=== PATIENT | male | born 1940 | race Caucasian/White ===

== ENCOUNTER → 2016-10-07 | Outpatient (CLI) | payer MEDICARE | END | disposition home or self-care (01) | LOC: PCVCIMAG 08:31 | PROVIDERS: ATTEND Internal Medicine | DX: I10 Essential (primary) hypertension (principal); E78.5 Hyperlipidemia, unspecified; I49.3 Ventricular premature depolarization; I65.29 Occlusion and stenosis of unspecified carotid artery; G45.9 Transient cerebral ischemic attack, unspecified; G47.30 Sleep apnea, unspecified; R73.02 Impaired glucose tolerance (oral) | CPT/HCPCS: 80061; 93005; 93880; G0463 ==

== ENCOUNTER → 2017-10-13 | Outpatient (CLI) | payer BC, MEDICARE | END | disposition home or self-care (01) | LOC: PCVCCLINIC 10:47 | DX: I10 Essential (primary) hypertension (principal); I49.3 Ventricular premature depolarization; E78.5 Hyperlipidemia, unspecified; I65.23 Occlusion and stenosis of bilateral carotid arteries; Z79.82 Long term (current) use of aspirin; Z79.899 Other long term (current) drug therapy | CPT/HCPCS: 80061; 93005; G0463 ==

== ENCOUNTER → 2018-10-17 | Outpatient (CLI) | payer BC ==
--- NOTE | 2018-10-17 09:38 | PCVCIMAG ---
APPROVED REPORT Indications Stenosis Risk Factors TIA/CVA History Doppler Spectral Velocity Analysis PSV / EDVPSV / EDV ECA (R) 72 / 9 cm/sECA (L) 62 / 11 cm/s dICA (R) 65 / 23 cm/sdICA (L) 74 / 29 cm/s Myriam (R) 74 / 27 cm/smICA (L) 87 / 30 cm/s pICA (R) 56 / 15 cm/spICA (L) 82 / 32 cm/s Bulb (R) 43 / 13 cm/sBulb (L) 64 / 14 cm/s dCCA (R) 58 / 16 cm/sdCCA (L) 64 / 17 cm/s mCCA (R) 58 / 14 cm/smCCA (L) 76 / 16 cm/s Vert (R) 36 / 10 cm/sVert (L) 48 / 15 cm/s ICA/CCA 1.28ICA/CCA 1.36 Basic Measurements Blood Pressure: Pulses: Right Left RightLeft Brachial(Sitting) 148/70xpDl823/86mmHgTemporal Real Time B-Mode Imaging Vert. (R)AntegradeVert. (L)Antegrade Findings The right carotid bulb has mild plaque. The right proximal internal carotid artery shows no significant stenosis. The right common carotid artery shows no significant stenosis. The right external carotid artery shows no significant stenosis. The left carotid bulb has moderate plaque. The left proximal internal carotid artery shows <40% stenosis. The left common carotid artery shows no significant stenosis. The left external carotid artery shows no significant stenosis. Conclusion 1. Right internal carotid artery plaquing without significant stenosis 2. Left internal carotid artery stenosis (<40%) 3. Antegrade vertebral flow
--- NOTE | 2018-10-17 10:11 | PCVCIMAG ---
APPROVED REPORT Study performed: 10/17/2018 09:21:17 EXAM: Comprehensive 2D, Doppler, and color-flow Echocardiogram Patient Location: Echo lab Status: routine BSA: 2.14 HR: 75 bpmBP: 140/86 mmHg Rhythm: NSR Other Information Study Quality: Good Risk Factors: Cardiac Risk Factors: Hyperlipidemia, HTN Indications PVC's, TIA, [place] 2D Dimensions RVDd: 32.89 mm IVSd: 11.18 (7-11mm)LVOT Diam: 22.07 (18-24mm) LVDd: 43.58 mm PWd: 10.07 (7-11mm)Ascending Ao: 35.32 (22-36mm) LVDs: 37.61 (25-40mm) Left Atrium: 38.62 (27-40mm) Aortic Root: 33.26 mm LV Single Plane 4CH: 56.62 % LV Single Plane 2CH: 63.03 % Biplane EF: 59.7 % Volumes Left Atrial Volume (Systole) Single Plane 4CH: 58.96 mLSingle Plane 2CH: 72.36 mL LA ESV Index: 33.00 mL/m2 Aortic Valve AoV Peak Alfonso.: 1.72 m/s AO Peak Gr.: 11.83 mmHg Mitral Valve E/A Ratio: 0.8 MV Decel. Time: 271.52 ms MV E Max Alfonso.: 0.92 m/s MV A Alfonso.: 1.11 m/s MV PHT: 78.74 ms TDI E/Lateral E': 11.50E/Medial E': 11.50 Medial E' Alfonso.: 0.08 m/s Lateral E' Alfonso.: 0.08 m/s Pulmonary Valve PV Peak Gr.: 3.55 mmHg Pulmonary Vein P Vein S: 0.58 m/sP Vein A: 0.31 m/s P Vein D: 0.53 m/sP Vein A Dur.: 83.0 msec P Vein S/D Ratio: 1.09 Tricuspid Valve TR Peak Alfonso.: 3.23 m/s TR Peak Gr.: 41.69 mmHg Left Ventricle The left ventricle is normal size. There is normal LV segmental wall motion. There is normal left ventricular wall thickness. Left ventricular systolic function is normal. The left ventricular ejection fraction is within the normal range. LVEF is 60%. Mild diastolic dysfunction is present (impaired relaxation pattern). Right Ventricle The right ventricle is normal size. The right ventricular systolic function is normal. Atria The left atrium size is normal. The right atrium size is normal. Aortic Valve The aortic valve is mildly calcified. No aortic regurgitation is present. There is no aortic valvular stenosis. Mitral Valve Mild mitral annular calcification Mild mitral regurgitation. No evidence of mitral valve stenosis. Tricuspid Valve The tricuspid valve is normal in structure. Mild tricuspid regurgitation. Pulmonary artery pressure is 50mmHg. Pulmonic Valve The pulmonary valve is normal in structure. There is no pulmonic valvular regurgitation. Great Vessels The aortic root is normal in size. IVC is normal in size and collapses >50% with inspiration. Pericardium There is no pericardial effusion. <Conclusion> Left ventricular systolic function is normal. There is normal LV segmental wall motion. LVEF is 60%. Mild diastolic dysfunction The aortic valve is mildly calcified. No aortic regurgitation or stenosis. Mild mitral annular calcification. Mild mitral regurgitation. Mild tricuspid regurgitation. Pulmonary artery pressure of 50mmHg. There is no pericardial effusion.
== END | disposition home or self-care (01) ==
LOC: PCVCIMAG 08:52
PROVIDERS: ATTEND Internal Medicine
DX: I65.23 Occlusion and stenosis of bilateral carotid arteries (principal); I08.1 Rheumatic disorders of both mitral and tricuspid valves; I49.3 Ventricular premature depolarization; E78.2 Mixed hyperlipidemia; I10 Essential (primary) hypertension; G47.33 Obstructive sleep apnea (adult) (pediatric)
CPT/HCPCS: 93306; 93880